=== PATIENT | male | born 1965 | race Caucasian/White ===

== ENCOUNTER 2024-01-09 18:33 | Emergency (ER) | payer BC, OTHER ==
[~2024-01-09] VITALS: Ht 165.1 cm; Wt 76.0 kg
[2024-01-09 18:43] VITALS: O2SAT 99
[2024-01-09 19:04] VITALS: BP 142/87; PULSE 70; TEMP 98.9; O2SAT 99
[2024-01-09 21:45] VITALS: RESP 19
[2024-01-09] MEDS: TETANUS, DIPHTHERIA, PERTUSSIS VAC/PF 0.5ML (>10YR OLD) IM ONE (21:50)
[2024-01-09] MEDS ORDERED: AMOX1TAB16 MT (21:57)
== END 2024-01-09 22:22 | disposition home or self-care (01) ==
LOC: ER 18:33
DX: S51.851A Open bite of right forearm, initial encounter (principal); W54.0XXA Bitten by dog, initial encounter; Y93.89 Activity, other specified; Y92.89 Other specified places as the place of occurrence of the external cause; Y99.8 Other external cause status
CPT/HCPCS: 90715; 90471; 99283; Z7610